=== PATIENT | male | born 1985 | race Caucasian/White ===

== ENCOUNTER 2023-06-20 22:25 | Emergency (ER) | payer OTHER ==
[2023-06-20] MEDS ORDERED: Lidocaine 1% (PF) 30 ML VIAL ONE (22:47)
== END 2023-06-20 23:32 | disposition home or self-care (01) ==
LOC: CSHERS 22:25
DX: S63.287A Dislocation of proximal interphalangeal joint of left little finger, initial encounter (principal); W54.1XXA Struck by dog, initial encounter
CPT/HCPCS: 64450; J2001